=== PATIENT | female | born 1955 | race Caucasian/White ===

== ENCOUNTER → 2016-09-25 | Outpatient (CLI) | payer MEDICARE ==
[~2016-09-25] VITALS: Ht 167.6 cm; Wt 70.5 kg
[~2016-09-25] MED LIST: ALBU6.7H INH; AMBI10TA PO; ARMO90TA PO; ASPI325T PO; ESTR0.5T PO; FEXO15TA PO; HYDR-3535 PO; HYDR12.57 PO; LORA1TAB12 PO; METF500T PO; PRAM1 PO; PROC10TA PO; PROPOFOL 200 MG/20 ML AMP IV ONE; VALT1TAB PO; VENL37.5 PO; VICT18IN SQ
[2016-09-25 06:45] VITALS: BP 105/68; PULSE 63; RESP 16; TEMP 97.4; O2SAT 100
[2016-09-25 08:01] VITALS: TEMP 97.5
--- NOTE | 2016-09-25 08:06 | GIPROC ---
[facility] [address] [facility]. [facility] [place], [address] COLONOSCOPY PROCEDURE REPORT EXAM DATE: 09/25/2016 PATIENT NAME: Blanche Gonzalez MR #: [id number] BIRTHDATE: 1955 ENDOSCOPIST: Claire Chauhan MD ORDER #: [id number] [employer] OFFICER: Anand Mathias and Darren Pryor STATUS: outpatient INDICATIONS: The patient is a 60 yr old female here for a colonoscopy due to Positive ColoGuard PROCEDURE PERFORMED: Total Colonoscopy with polypectomy with biopsy forceps MEDICATIONS: See Anesthesia Record ESTIMATED BLOOD LOSS: None CONSENT: The patient understands the risks and benefits of the procedure and understands that these risks include, but are not limited to: sedation, allergic reaction, infection, perforation and/or bleeding. Alternative means of evaluation and treatment include, among others: physical exam, x-rays, and/or surgical intervention. The patient elects to proceed with this endoscopic procedure. DESCRIPTION OF PROCEDURE: checked for proper function. Hand hygiene and appropriate measures for infection prevention was taken. After the risks, benefits and alternatives of the procedure were thoroughly explained, Informed consent was verified, confirmed and timeout was successfully executed by the treatment team. A digital exam was performed. The endoscope was introduced through the anus and advanced to the cecum, which was identified by the appendiceal orifice, tri-radiate valve, and ileocecal valve. The prep quality was good. The instrument was then slowly withdrawn as the colon was fully examined. There were no mucosal abnormalities noted with the cecum or ascending colon. In the distal transverse colon, at the splenic flexure, a small 2-3 mm polyp was removed with the biopsy forceps. There were no abnormalities in the descending colon. In the sigmoid there was moderate diverticulosis without diverticulitis. There were no abnormalities in the rectum. The scope was then completely withdrawn from the patient and the procedure terminated. ADVERSE EVENTS: There were no complications. WITHDRAWL TIME: DEGREE OF DIFFICULTY: IMPRESSIONS: Normal Colon RECOMMENDATIONS: Await Biopsy PATIENT CONDITION: Stable DISPOSITION: Home RECALL: 5 years if polyp adenomatous, otherwise 10 years Claire Chauhan MD eSigned: Claire Chauhan MD 09/25/2016 8:05 AM cc: Dr. Zamudio PATIENT NAME: Blanche Gonzalez MR#: [id number]
[2016-09-25 08:25] VITALS: BP 109/82; PULSE 76; RESP 18; O2SAT 100
--- NOTE | 2016-09-25 15:53 | EKG ---
Date Performed: 09/25/2016 Time Performed: 07:21:02 PTAGE: 60 years EKG: Sinus rhythm Nonspecific ST and T wave abnormalities PREVIOUS TRACING : 07/03/2012 07.00 Compared to prior tracing no significant change DOCTOR: Virgilio Spangler Interpretating Date/Time 09/25/2016 15:52:03
== END ==
LOC: HEND 06:16
PROVIDERS: ATTEND Colon & Rectal Surgery
DX: R19.5 Other fecal abnormalities (principal); D12.3 Benign neoplasm of transverse colon; K57.90 Diverticulosis of intestine, part unspecified, without perforation or abscess without bleeding; Z01.810 Encounter for preprocedural cardiovascular examination
CPT/HCPCS: 88305; 93005